=== PATIENT | male | born 1995 | race Two or more races ===

== ENCOUNTER 2022-03-21 04:23 | Emergency (ER) | payer SELFPAY ==
[~2022-03-21] VITALS: Ht 177.8 cm; Wt 81.6 kg
[2022-03-21 04:30] VITALS: BP 143/73
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
--- NOTE | 2022-03-21 05:15 | NUR ---
TO CT VIA W/C
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
--- NOTE | 2022-03-21 06:12 | NUR ---
PT TO BE SITE RELEASED.
--- NOTE | 2022-03-21 06:15 | NUR ---
PT MOVED TO BED 11
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
[2022-03-21] MEDS ORDERED: ACET-10509 PO (08:15)
[2022-03-21 08:18] VITALS: BP 135/78
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
== END 2022-03-21 08:20 | disposition home or self-care (01) ==
LOC: MED 04:23
DX: S01.81XA Laceration without foreign body of other part of head, initial encounter (principal); M54.2 Cervicalgia; V69.88XA Occupant (driver) (passenger) of heavy transport vehicle injured in other specified transport accidents, initial encounter; Y93.89 Activity, other specified; Y92.89 Other specified places as the place of occurrence of the external cause; Y99.8 Other external cause status
CPT/HCPCS: 12015; 70450; 72125; 90471; 90715; 99285